=== PATIENT | female | born 1960 | race Caucasian/White ===

== ENCOUNTER 2020-03-26 10:35 | Outpatient (RCR) | payer MEDICARE, MEDICAID ==
[~2020-03-26] VITALS: Ht 160 cm; Wt 109.5 kg
[~2020-03-26 10:35] MED LIST: CITA-105 PO; CITA10TA PO; CYCL10TA9 PO; DCS100C PO; FERR324T4 PO; GBPN300C PO; HCT25T PO; HYDR-34 PO; IBP600T1 PO; IBUP-1773 PO; IRON1TAB94 PO; LEVO25TA5 PO; LISI1TAB46 PO; MELO-198 PO; NAPR-248 PO; OMEP20TA7 PO; POTA10CA43 PO; PROP20TA5 PO; RABE20TA PO; SMT40B30 PO; SUCR1TAB PO; TRAZ150T42 PO; TRAZ50TA67 PO; VNL75T PO
[2020-03-26] MEDS ORDERED: TRAM50TA3 PO (14:41)
[2020-03-26] MEDS ORDERED: ATOR20TA66 PO (14:41)
[2020-03-26] MEDS ORDERED: TRZ50T PO (14:41)
[2020-03-26] MEDS ORDERED: POTA10CA43 PO (14:41)
[2020-03-26] MEDS ORDERED: DICL75TA2 PO (14:41)
[2020-03-26] MEDS ORDERED: GBPN600T PO (14:41)
[2020-03-26] MEDS ORDERED: BUPR150T8 PO (14:41)
[2020-03-26] MEDS ORDERED: DULO60CA6 PO (14:41)
== END 2020-03-26 14:46 | disposition home or self-care (01) ==
LOC: PREOP 10:35
PROVIDERS: ATTEND Specialist
DX: Z01.818 Encounter for other preprocedural examination (principal)

== ENCOUNTER 2020-03-29 09:30 | Day surgery (SDC) | payer MEDICARE, MEDICAID ==
[~2020-03-29] VITALS: Ht 160 cm; Wt 109.5 kg
[~2020-03-29 09:30] MED LIST changes: +ATOR20TA66 PO; +BUPR150T8 PO; +DICL75TA2 PO; +DULO60CA6 PO; +GBPN600T PO; +TRAM50TA3 PO; +TRZ50T PO
[2020-03-29 10:00] VITALS: BP 120/71
[2020-03-29] MEDS ORDERED: POVIDONE (BETADINE) OPHTH SOLN 5% 30 ML OP ONE (10:00)
[2020-03-29] MEDS ORDERED: LIDOCAINE PF 1% 2 ML VIAL IR PRN (10:00)
[2020-03-29] MEDS ORDERED: TIMOLOL MALEATE 0.5% 5 ML (TIMOPTIC) BTL OU PRN (10:00)
[2020-03-29] MEDS ORDERED: MOXIFLOXACIN OPHTH SOLN 5 MG/ML 0.3 ML SYRINGE OP ONE (10:00)
[2020-03-29] MEDS: TETRACAINE 0.5% OPHTH SOLN 4 ML BTL (SINGLE DOSE ONLY) OU PRN ×4 (10:04→10:23)
[2020-03-29] MEDS: TROPICAMIDE 1% OPH SOLN (MYDRIACYL) 15 ML BTL OP SCH ×3 (10:10→10:23)
[2020-03-29] MEDS: PHENYLEPHRINE 10% OPHTH (NEO-SYN) 5 ML BTL OU SCH ×3 (10:11→10:23)
[2020-03-29] MEDS ORDERED: MIDAZOLAM 2 MG/2 ML (VERSED) VIAL ONE (10:41)
--- NOTE | 2020-03-29 10:43 | Ophthalmologist Pre-Op Note ---
Pre-Operative Progress Note H&P Reviewed The H&P was reviewed, patient examined and no changes noted. Date H&P Reviewed: Mar 29, 2020 Time H&P Reviewed: 10:43 Pre-Op Dx Cataract, Left Eye HORACE ALAMO MD Mar 29, 2020 10:43
[2020-03-29 11:00] VITALS: BP 104/57
--- NOTE | 2020-03-29 11:03 | Ophthalmology Operative Report ---
Cataract removal/placement IOL PREOPERATIVE DIAGNOSIS: Cataract Left Eye POSTOPERATIVE DIAGNOSIS: Cataract Left Eye PROCEDURE: Cataract removal and placement of posterior chamber implant, left eye SURGEON: Toi Alamo ANESTHESIA: Topical with sedation COMPLICATIONS: None ESTIMATED BLOOD LOSS: Minimal DESCRIPTION OF PROCEDURE: After proper informed consent was obtained, the patient, a 59 female, was taken to the Operating Room and the left eye was anesthetized with tetracaine. The left eye was then prepped and draped in the usual manner. A wire lid speculum was placed. A paracentesis was made at the left hand position. Preservative free lidocaine was injected into the anterior chamber followed by viscoelastic. A clear corneal incision was made in the temporal position. A capsulorrhexis was preformed and the central nuclear and cortical material were removed. The posterior capsule was polished and an Best 21.5 AU00T0 was placed into the capsular bag. The residual viscoelastic was aspirated and balanced saline solution was injected into the anterior chamber. Moxifloxacin was injected into the anterior chamber. The wound was checked and found to be water tight. The patient tolerated the procedure well without complications. TOI ALAMO MD Mar 29, 2020 11:03
--- NOTE | 2020-03-29 11:09 | Anesthesia-General Post-Op ---
MAC Patient Condition Mental Status/LOC: Same as Preop Cardiovascular: Satisfactory Nausea/Vomiting: Absent Respiratory: Satisfactory Pain: Controlled Complications: Absent Post Op Complications Complications None Follow Up Care/Instructions Patient Instructions None needed. Anesthesiology Discharge Order Discharge Order Patient is doing well, no complaints, stable vital signs, no apparent adverse anesthesia problems. No complications reported per nursing. VIVIANE DE LA ROSA CRNA Mar 29, 2020 11:09
[2020-03-29] MEDS ORDERED: acetaZOLAMIDE ER 500 MG CAP (DIAMOX SEQUELS) PO ONE (11:30)
== END 2020-03-29 11:15 ==
LOC: SDC 09:30
PROVIDERS: ATTEND Specialist
DX: E11.36 Type 2 diabetes mellitus with diabetic cataract (principal); H25.12 Age-related nuclear cataract, left eye; I10 Essential (primary) hypertension; K21.9 Gastro-esophageal reflux disease without esophagitis; M19.90 Unspecified osteoarthritis, unspecified site; F32.9 Major depressive disorder, single episode, unspecified; Z79.82 Long term (current) use of aspirin; Z79.899 Other long term (current) drug therapy; Z91.048 Other nonmedicinal substance allergy status; Z88.0 Allergy status to penicillin; Z88.2 Allergy status to sulfonamides; Z88.8 Allergy status to other drugs, medicaments and biological substances; Z87.891 Personal history of nicotine dependence
CPT/HCPCS: 66984; V2632

== ENCOUNTER 2020-04-09 07:44 | Outpatient (RCR) | payer MEDICARE, MEDICAID ==
[~2020-04-09 07:44] MED LIST changes: +BUPR150T24 PO; -BUPR150T8 PO
== END 2020-07-08 | disposition home or self-care (01) ==
LOC: PREOP 07:44
PROVIDERS: ATTEND Specialist
DX: Z01.818 Encounter for other preprocedural examination (principal)

== ENCOUNTER 2020-04-12 08:00 | Day surgery (SDC) | payer MEDICARE, MEDICAID ==
[~2020-04-12] VITALS: Ht 160 cm; Wt 109.5 kg
[~2020-04-12 08:00] MED LIST changes: -BUPR150T24 PO; +BUPR150T8 PO
[2020-04-12 08:05] VITALS: BP 129/83
[2020-04-12] MEDS: TETRACAINE 0.5% OPHTH SOLN 4 ML BTL (SINGLE DOSE ONLY) OU PRN ×3 (08:08→08:24)
[2020-04-12] MEDS ORDERED: PHENYLEPHRINE 10% OPHTH (NEO-SYN) 5 ML BTL OU PRN (08:15)
[2020-04-12] MEDS ORDERED: TROPICAMIDE 1% OPH SOLN (MYDRIACYL) 15 ML BTL OU PRN (08:15)
--- NOTE | 2020-04-12 08:58 | Ophthalmologist Pre-Op Note ---
Pre-Operative Progress Note H&P Reviewed The H&P was reviewed, patient examined and no changes noted. Date H&P Reviewed: Apr 12, 2020 Time H&P Reviewed: 08:58 Pre-Op Dx Secondary Cataract, Right Eye HORACE ALAMO MD Apr 12, 2020 08:58
[2020-04-12 09:05] VITALS: BP 129/83
--- NOTE | 2020-04-12 09:31 | Ophthalmology Operative Report ---
YAG Capsulotomy PREOPERATIVE DIAGNOSIS: Secondary Cataract Right Eye POSTOPERATIVE DIAGNOSIS: Secondary Cataract Right Eye PROCEDURE: YAG Capsulotomy, right eye SURGEON: Toi Alamo ANESTHESIA: Topical anesthesia COMPLICATIONS: None ESTIMATED BLOOD LOSS: Minimal DESCRIPTION OF PROCEDURE: After proper informed consent was obtained, the patient's, a 59 female, right eye received one drop of Tropicamide and one drop of Tetracaine. The patient was then placed at the YAG laser and using a power of [3.2 ] millijoules and [ 21] bursts were used to fashion a central capsulotomy. The patient tolerated the procedure well without complications. TOI ALAMO MD Apr 12, 2020 09:31
== END 2020-04-12 09:05 | disposition home or self-care (01) ==
LOC: SDC 08:00
PROVIDERS: ATTEND Specialist
DX: H26.491 Other secondary cataract, right eye (principal); Z88.0 Allergy status to penicillin; Z98.890 Other specified postprocedural states; Z83.3 Family history of diabetes mellitus